=== PATIENT | female | born 1935 | race African-American/Black ===

== ENCOUNTER → 2018-08-22 | Outpatient (CLI) | payer MEDICARE, OTHER ==
[~2018-08-22] MED LIST: FLUT1BLS3 IH; HEPARIN PF 500 UNIT/5 ML DISP.SYRIN. IV ONE; IOHEXOL 350 MG/ML 100 ML VIAL. IV ONE; LEVE500T56 PO; METO50TA6 PO; MULT1TAB52 PO; NAPR-514 PO
--- NOTE | 2018-08-22 10:06 | RAD ---
PQRS Compliance Statement: One or more of the following individualized dose reduction techniques were utilized for this examination: 1. Automated exposure control 2. Adjustment of the mA and/or kV according to patient size 3. Use of iterative reconstruction technique CT CHEST WITH CONTRAST, PULMONARY ANGIOGRAM History: CP SOA Comparison: CT chest with contrast, CT PE 06/22/2018. Technique: Helical CT of the chest was performed after the administration of 100 cc of Omnipaque 350 intravenous contrast according to PE protocol. Axial and coronal reconstructions were obtained. 3-D MIP images were constructed to better evaluate the pulmonary arteries. Findings: Pulmonary arteries are adequately opacified. There is no evidence of acute pulmonary embolism. Unchanged from prior study, there is nonopacification of basilar left lower lobe pulmonary arteries. There is no thoracic aortic dissection. Atherosclerotic aortic arch. Narrowing of the proximal left subclavian artery. There is right chest Port-A-Cath, tip in right atrium. Thyroid is symmetric. Upper limits of normal in size right paratracheal lymph node. No mediastinal adenopathy. Coronary artery disease. Cardiac size near upper limits of normal. No pericardial effusion. There is no pleural effusion. There is moderate centrilobular emphysema. Tiny linear opacities in the central airways may be retained secretions or mucous. There is scarring or chronic atelectasis in the bilateral lower lobes, similar to prior study. There is stable calcification and minimal scarring in the medial left lung apex. Calcified granuloma left lower lobe. Small bilateral adrenal nodules are stable. No acute bone abnormality. IMPRESSION: 1. There is no CT evidence of acute pulmonary embolus. There is unchanged nonopacification of basilar left lower lobe pulmonary arteries that may be due to chronic pulmonary embolus. 2. Moderate centrilobular emphysema. 3. There is unchanged scarring or chronic atelectasis in the bilateral lower lobes. 4. Stable small bilateral adrenal nodules. Electronically signed by: Jacoby Rubi MD (08/22/2018 10:03 AM) [id number]
== END | disposition home or self-care (01) ==
LOC: CT 08:16
PROVIDERS: ATTEND Internal Medicine Pulmonary Disease
DX: J43.2 Centrilobular emphysema (principal); J98.4 Other disorders of lung; I25.10 Atherosclerotic heart disease of native coronary artery without angina pectoris; R91.8 Other nonspecific abnormal finding of lung field
CPT/HCPCS: 71275; Q9967

== ENCOUNTER → 2018-09-05 | Outpatient (CLI) | payer MEDICARE, OTHER ==
[~2018-09-05] MED LIST changes: +GADOTERATE 7.5 MMOL/15ML VIAL. IVP ONE; -HEPARIN PF 500 UNIT/5 ML DISP.SYRIN. IV ONE; -IOHEXOL 350 MG/ML 100 ML VIAL. IV ONE
--- NOTE | 2018-09-05 13:36 | RAD ---
EXAMINATION: Magnetic resonance imaging (MRI) of the brain and brainstem without and with contrast 09/05/2018 10:30 AM HISTORY: History of lung cancer. TECHNIQUE: Multiplanar multi-weighted MRI of the brain and brainstem was performed without and with intravenous contrast using the general brain protocol. Contrast information: 12 mL Gadolinium based contrast COMPARISON: None available. FINDINGS: The scalp and calvarium are normal. The superior sagittal sinus demonstrates normal venous flow. The corpus callosum is normal in shape and signal intensity. The posterior fossa is unremarkable. The pituitary and sella are normal. The brainstem and craniocervical junction are unremarkable. There are T2/FLAIR signal hyperintense foci in the periventricular and subcortical white matter with areas of confluence most suggestive of moderate chronic small vessel ischemic changes. Diffusion weighted images reveal no hyperintensities to suggest acute cerebral infarction. Punctate area of susceptibility artifact is identified in the left isaura which may represent microhemorrhage versus tiny cavernoma. This focal susceptibility artifact along the right medial cerebellar folia which corresponds with an enhancing mass measuring 10 x 8 mm.. The ventricles are normal in size and position without evidence of hydrocephalus. There is an enhancing lesion within the right temporal pole measuring 1.4 x 1.0 cm with associated vasogenic edema. It is difficult to assess whether this is extra-axial or intra-axial with T2 axial images suggesting more extra-axial location. There is no significant mass effect in this region. There is a 4 mm enhancing lesion in the right lateral cerebellum (series 10, image 7). There is an extra-axial enhancing lesion along the right falx measuring 6 x 5 mm. Mild mucosal thickening of the anterior ethmoid air cells bilaterally. Mild mucosal thickening involving the right maxillary sinus. The visualized portions of the mastoids are unremarkable. The orbits appear normal with exception of bilateral lens replacement. Normal flow voids are demonstrated in the carotid arteries and basilar artery. IMPRESSION: 1. No evidence for acute or subacute ischemia. 2. 2 enhancing right cerebellar lesions are suspicious for metastatic disease. There is associated vasogenic edema without significant mass effect. The medial right cerebellar lesion has associated hemorrhage. 3. Possibly extra-axial lesion in the right temporal pole has associated vasogenic edema in the right temporal lobe and is suspicious for dural based metastasis in the setting of lung cancer. 4. Midline right parafalcine extra-axial enhancement measures 6 x 4 mm and may either represent a meningioma or dural based metastatic disease. 5. Punctate focus of susceptibility in the left isaura may represent microhemorrhage or tiny cavernoma. 6. There are T2/FLAIR signal hyperintense foci in the periventricular and subcortical white matter with areas of confluence most suggestive of moderate chronic small vessel ischemic changes. Electronically signed by: Radhika Wells MD (09/05/2018 1:33 PM) [id number]
== END | disposition home or self-care (01) ==
LOC: MRI 10:09
PROVIDERS: ATTEND Internal Medicine Hematology & Oncology
DX: G93.89 Other specified disorders of brain (principal); Z85.118 Personal history of other malignant neoplasm of bronchus and lung
CPT/HCPCS: 70553; A9575

== ENCOUNTER → 2018-12-04 | Outpatient (CLI) | payer MEDICARE ==
[2018-10-17 12:00] VITALS: BP 102/45
[~2018-12-04] MED LIST changes: +ALBU2.5V8 NEB; +ASPI-612 PO; +ATOR40TA59 PO; +GADOTERATE 5 MMOL/10ML VIAL. IVP ONE; -GADOTERATE 7.5 MMOL/15ML VIAL. IVP ONE; +NAPR220C4 PO; +Nicotine 21MG TD; +TICA90TA PO
--- NOTE | 2018-12-04 14:38 | KCIC ---
BRAIN WO/W CONTRAST History: Lung cancer. Evaluation for metastasis. Technique: Multiplanar, multi sequential pre and postcontrast MR imaging was performed of the brain. Contrast: 10 mL Dotarem. Comparison: September 05, 2018. Findings: No acute infarct. Significant increased size of right posterior cerebellar lesion measures 2.8 x 1.9 cm (compared to 0.9 x 0.8 cm. There is significant increased surrounding vasogenic edema and mild mass effect on the right aspect of the fourth ventricle. There is gradient hypointensity associated with the lesion indicating internal hemorrhage. Additional smaller right cerebellar lesion, unchanged. Right anterior temporal lobe lesion, similar in size compared to prior. Mildly decreased adjacent vasogenic edema. There is associated gradient hypointensity indicating internal hemorrhage. Increased size of right parafalcine dural based enhancing lesion measures 1.0 cm (compared to 0.6 cm previously). There is increased vasogenic edema within the adjacent right frontal lobe. Moderate additional focal and confluent foci of T2/FLAIR hyperintensity within the hemispheric white matter, most often due to chronic microvascular ischemia. Mild brain parenchymal volume loss. No hydrocephalus. Additional gradient hypointense foci within the right frontal lobe, likely related to prior microhemorrhage. Punctate focus of gradient hypointensity within the left isaura, may represent tiny cavernous malformation or related to prior microhemorrhage. Chronic left parietal cortical infarct. Tiny chronic bilateral cerebellar infarcts. Imaged orbits are unremarkable. Imaged paranasal sinuses and mastoid air cells are clear. Impression: 1. 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 2. Increased right parafalcine dural based metastasis with increased adjacent frontal lobe vasogenic edema. 3. Unchanged right temporal and smaller right cerebellar metastasis. No new metastasis. Electronically signed by: Marck Mills DO (12/04/2018 2:36 PM) [id number]
== END | disposition home or self-care (01) ==
LOC: KCIC MRI 11:06
PROVIDERS: ATTEND Internal Medicine Hematology & Oncology
DX: C79.31 Secondary malignant neoplasm of brain (principal); C34.90 Malignant neoplasm of unspecified part of unspecified bronchus or lung; G93.9 Disorder of brain, unspecified; I10 Essential (primary) hypertension; Z87.891 Personal history of nicotine dependence
CPT/HCPCS: 70553; A9575

== ENCOUNTER → 2018-12-04 | Outpatient (CLI) | payer MEDICAID, MEDICARE ==
[2018-10-17 12:00] VITALS: BP 102/45
[~2018-12-04] MED LIST changes: -GADOTERATE 5 MMOL/10ML VIAL. IVP ONE; +IOHEXOL 240 MG/ML 50ML VIAL. PO ONE; +IOHEXOL 300 MG/ML 100ML VIAL. IV ONE
--- NOTE | 2018-12-04 16:25 | RAD ---
PQRS Compliance Statement: One or more of the following individualized dose reduction techniques were utilized for this examination: 1. Automated exposure control 2. Adjustment of the mA and/or kV according to patient size 3. Use of iterative reconstruction technique CT chest, abdomen and pelvis with contrast December 04, 2018 INDICATION: Lung cancer; restaging. COMPARISON: CT chest August 22, 2018 TECHNIQUE: Multiple axial CT images of the chest, abdomen and pelvis were obtained after the intravenous administration of nonionic contrast. Coronal and sagittal reformats are provided. FINDINGS: CHEST: Right chest wall infusion port catheter is identified with distal tip terminating at the cavoatrial junction. There is moderate centrilobular pulmonary emphysema. 5 mm solid noncalcified pulmonary nodules identified in the medial aspect of the right middle lobe (series 2, image 37), new. 4.5 mm subpleural nodule is identified in the left costophrenic angle (series 2, image 47), new and possibly associated with dependent atelectasis. There is bandlike thickening at the left lung base suggestive of subsegmental atelectasis or scarring. Subpleural solid noncalcified pulmonary nodules identified in the superior segment left lower lobe measuring 5 mm (series 2, image 28), stable. No endobronchial lesions are identified. Post therapy changes are identified along the medial left upper lobe. Thyroid gland is normal in appearance. Precarinal lymph node measures 8 mm by short axis, stable. 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 No new or enlarging thoracic lymphadenopathy. Heart size is within normal limits. Three-vessel coronary artery vascular calcifications are identified. Thoracic aorta is normal in course and caliber with moderate calcified and noncalcified atheromatous plaque. Abdomen/pelvis: Liver, spleen and pancreas are normal in appearance. Gallbladder is surgically absent. No intrahepatic or extrahepatic biliary ductal dilatation. Stable nodular thickening of the left adrenal gland measuring 10 mm. Right adrenal gland is normal. There is ectasia of the infrarenal abdominal aorta measuring 19 x 20 mm with dense calcified atheromatous plaque. No pathologically enlarged abdominal or pelvic lymph nodes are identified. There is no free fluid or free intraperitoneal air. Oral contrast was administered. Opacified bowel loops demonstrate normal mucosal fold pattern. Small and large bowel are normal in caliber. There is no evidence for bowel obstruction. There are no pericolonic inflammatory changes. Appendix is not definitively visualized. No pericecal inflammatory changes are identified. There is a 7 mm nonobstructing calculus in superior pole the right kidney. There is a cystic lesion in the right suprarenal space measuring 19 mm suggestive of a exophytic superior pole right renal cyst. The kidneys enhance symmetrically. There is no suspicious renal mass. There is no hydronephrosis. There are no suspected calculi within the kidneys, ureters or urinary bladder. There is bladder wall thickening with mucosal enhancement which may be seen with posttreatment related changes or cystitis. Calcified uterine fibroid measures 2.1 cm. There is lobular enlargement of the uterus largely replaced by a mass measuring 7.1 x 7.1 x 7.9 cm. Uterine leiomyoma or uterine leiomyosarcoma may have similar appearance. Correlate with any prior imaging. Right ovary is visualized measuring 2.7 x 1.4 cm (series 4, image 55). Left ovary is visualized measuring 2.2 x 1.4 cm. 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 No suspicious osseous abnormality is identified. IMPRESSION: 1. There is a new 5 mm solid noncalcified pulmonary nodule in the medial aspect of the right middle lobe. Attention on follow-up exams is recommended. 2. Stable subpleural nodule in the superior segment left lower lobe measuring 5 mm. 3. Marginally increased suspected chronic thrombus involving the left lower lobe pulmonary artery. 4. Mild to moderate centrilobular pulmonary emphysema. Post therapy changes are identified in the medial left upper lobe. Correlate with prior treatment. Findings are stable from August 22, 2018. 5. Ectasia of infrarenal abdominal aorta measuring 19 x 20 mm. 6. Stable nodular thickening of the left adrenal gland measuring 10 mm. 7. Uterine mass measures 7.1 x 7.1 x 7.9 cm with heterogeneous enhancement statistically favored to represent uterine leiomyoma. Correlate with any prior imaging to assess for development of uterine leiomyosarcoma. Short-term follow-up pelvic ultrasound may be of benefit to assess stability. 8. Bladder wall enhancement and thickening may reflect cystitis or posttreatment related changes. 9. Nonobstructing superior pole right renal calculus measuring 7 mm. No hydronephrosis. Electronically signed by: Radhika Wells MD (12/04/2018 4:22 PM) [employer]
== END | disposition home or self-care (01) ==
LOC: CT 08:26
PROVIDERS: ATTEND Internal Medicine Hematology & Oncology
DX: C34.32 Malignant neoplasm of lower lobe, left bronchus or lung (principal); J43.2 Centrilobular emphysema; I27.82 Chronic pulmonary embolism; I25.10 Atherosclerotic heart disease of native coronary artery without angina pectoris; I77.811 Abdominal aortic ectasia; I70.0 Atherosclerosis of aorta; N20.0 Calculus of kidney; N28.89 Other specified disorders of kidney and ureter; D25.9 Leiomyoma of uterus, unspecified; R91.8 Other nonspecific abnormal finding of lung field; M16.0 Bilateral primary osteoarthritis of hip
CPT/HCPCS: 71260; 74177; Q9966; Q9967